=== PATIENT | female | born 1995 | race American Indian/Alaskan Native ===

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

== ENCOUNTER 2018-10-11 13:41 | Emergency (ER) | payer OTHER ==
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
[2018-10-11 14:58] LABS: Bacteria,Urine 1+ /HPF (Negative); Bilirubin,Urine NEG (Negative); Blood,Urine MOD (Negative); Color,Urine Yellow (Yellow); Mucus,Urine 3+ /HPF
[2018-10-11 14:59] LABS: Amphetamine Screen,Urine PRESUMPTIVE NEGATIVE; Benzodiazepines Screen,Urine PRESUMPTIVE NEGATIVE; Cannabinoid Screen,Urine PRESUMPTIVE NEGATIVE; Cocaine Screen,Urine PRESUMPTIVE NEGATIVE; Methadone Screen,Urine PRESUMPTIVE NEGATIVE; Opiate Screen,Urine PRESUMPTIVE NEGATIVE
[2018-10-11 15:11] LABS: Alanine Aminotransferase 9 units/L (7-56); Albumin 4.6 g/dL (3.9-5); BUN/Creatinine Ratio 33; Blood Urea Nitrogen 13 mg/dL (7-17); Calcium 9.1 mg/dL (8.4-10.2); Hemolysis Index 47
[2018-10-11 15:19] LABS: Basophils % (Auto) 0.7 % (0.0-1.8); Eosinophils # (Auto) 0.1 K/mm3 (0.0-0.4); Hematocrit 33.8 % (30.3-42.9); Hemoglobin 10.9 gm/dl (10.1-14.3); Lymphocytes # (Auto) 1.4 K/mm3 (1.2-5.4); Mean Corpuscular HGB Conc 32 % (30-34); Mean Corpuscular Volume 84 fl (79-97); Monocytes # (Auto) 0.5 K/mm3 (0.0-0.8); Monocytes % (Auto) 7.4 % (0.0-7.3); Platelet Count 224 K/mm3 (140-440); Red Blood Count 4.01 M/mm3 (3.65-5.03); Red Cell Distribution Width 16.5 % (13.2-15.2)
[2018-10-11] MEDS ORDERED: LEVAQUIN PO SCH (18:00)
[2018-10-11 21:34] VITALS: BP 96/61
== END 2018-10-11 21:25 ==
LOC: EEVIPCON 13:41 → ED 13:41
DX: F32.9 Major depressive disorder, single episode, unspecified (principal); N39.0 Urinary tract infection, site not specified
CPT/HCPCS: 36415; 80053; 80307; 81001; 84703; 85025; 99285; G0480; 80320